=== PATIENT | male | born 1945 ===

== ENCOUNTER 2018-04-17 06:13 | Day surgery (SDC) | payer MEDICARE, OTHER ==
[2018-04-17 06:59] LABS: EOS % 18.3 % (1.5-5.0); GRAN # 4.84 (1.4-6.5); GRAN % 47.5 % (50.0-68.0); HEMOGLOBIN 15.1 g/dL (14.0-18.0); LYMPH # 2.3 (1.2-3.4); LYMPH % 22.9 % (22.0-35.0); MEAN CELL VOLUME 83.2 fl (80.0-105.0); MEAN CORPUSCULAR HEMOGLOBIN 27.8 pg (25.0-35.0); MEAN CORPUSCULAR HGB CONC 33.4 g/dl (31.0-37.0); MEAN PLATELET VOLUME 11.7 fl (7.0-11.0); MONO # 1.1 (0.1-0.6); MONO % 10.3 % (1.0-6.0); RBC 5.43 10^6/uL (3.5-6.1); WHITE BLOOD COUNT 10.2 10^3/uL (4.5-11.0)
[2018-04-17 07:00] LABS: BASO # 0.1 K/mm3 (0.0-2.0); EOS # 1.9 (0.0-0.7)
[2018-04-17] MEDS ORDERED: Lidocaine 2% PF (10 ml) Amp ONE (07:06)
[2018-04-17] MEDS ORDERED: Iohexol 350mgl/ml 50 ML ONE (07:06)
[2018-04-17] MEDS ORDERED: Phenylephrine 10 mg/ml Inj ONE (07:06)
[2018-04-17] MEDS ORDERED: Iodixanol 320 MG/ML 200 ML BOTTLE IV ONE (07:07)
[2018-04-17] MEDS ORDERED: Iodixanol 320 MG/ML 100 ML BOTTLE IV ONE (07:07)
[2018-04-17] MEDS ORDERED: Nitroglycerin 50mg in D5W 0 MG/0 ML BOTTLE IV ONE (07:07)
[2018-04-17 07:08] LABS: INR 1.07; PARTIAL THROMBOPLASTIN TIME 30.1 Seconds (25.1-36.5); PROTHROMBIN TIME 12.3 SECONDS (9.4-12.5)
[2018-04-17] MEDS ORDERED: Famotidine 20mg/50ml 20 MG/50 ML BAG IVPB ONE (07:13)
[2018-04-17] MEDS ORDERED: DiphenhydrAMINE 50 mg/ml Inj ONE (07:13)
[2018-04-17 07:33] LABS: CALCIUM 9.6 mg/dL (8.4-10.5)
[2018-04-17] MEDS ORDERED: Midazolam 2 MG/2 ML VIAL ONE ×2 (08:08→08:26)
--- NOTE | 2018-04-17 10:07 | CARDCATH ---
PROCEDURE DATE: 04/17/2018 CARDIAC CATHETERIZATION AND PTCA. HISTORY: The patient is a 73-year-old male with multiple cardiac risk factors, who is status post coronary artery bypass surgery, who presents with angina as well as an abnormal stress test. Because of this, a cardiac catheterization was recommended. PROCEDURE: Left heart catheterization with coronary arteriography, left ventriculogram, ONOFRE angiogram, saphenous vein graft angiogram followed by PTCA and stent of an LAD with drug-eluting stents. The right femoral artery was cannulated with a 6-Citizen Of [place] sheath. There were no complications. I performed moderate sedation, which included the presence of an independent trained observer that assisted in monitoring the patient's consciousness and physiologic status. After administration of Versed and fentanyl, my intra service time was 45 minutes. The findings on catheterization revealed a left ventricle that revealed mild inferior wall hypokinesis with an estimated ejection fraction of 60%. The RCA was a dominant vessel. There was a patent stent in the midportion. The left main artery was unremarkable. The LAD revealed 80% proximal stenosis followed by an 80% mid stenosis. The circumflex artery was occluded, which appeared chronic. There was a long critical lesion. A long occlusion from the proximal circumflex into the mid to distal circumflex artery. The ONOFRE to the LAD was occluded. The saphenous vein graft to the OM circumflex system revealed a 90% stenosis in its proximal portion. The patient was started on intravenous Angiomax on the fluoroscopic guide, the guiding catheter was placed in the ostium of the left main artery. An 0.014 ATW wire was used to cross the two lesions in the LAD. Predilatation was performed with a 2.5 balloon. Two drug-eluting stents were placed in the proximal and in the mid LAD lesions. Repeat coronary arteriography revealed an excellent result with no residual stenosis and RELL 3 flow. Angio-Seal was used to close the femoral artery site. The patient tolerated the procedure well. In summary, the procedure was successful PTCA and stent of 2 lesions in the proximal and mid LAD with drug-eluting stents. Cardiac catheterization reveals mild inferior wall hypokinesis with an EF of 60%. Triple-vessel CAD. Patent stent in the RCA. 90% SVG stenosis to the OM. Occluded ONOFRE to the LAD. Given these findings, the patient will need to continue on aspirin and Plavix and undergo a strict cardiac risk reduction program. We will bring him back in 1 week for PTCA and stent of the saphenous vein graft to the circumflex system. Rito Sotelo MD
--- NOTE | 2018-04-17 11:17 | CARD ---
APPROVED REPORT Date of service: 04/17/2018 EKG Measurement Heart [id number] [place] 142P36 [id number] <Conclusion> Sinus bradycardia Otherwise normal ECG
--- NOTE | 2018-04-17 11:38 | CARD ---
APPROVED REPORT Date of service: 04/17/2018 EKG Measurement Heart [id number] [place] 160P51 [id number] <Conclusion> Sinus bradycardia Inverted T in V 2 LVH by voltage No change
[2018-04-17] MEDS ORDERED: Sodium Chloride 0.9% 1,000 ML IV SCH ×2 (12:28→16:45)
--- NOTE | 2018-04-17 16:29 | HP ---
HISTORY OF PRESENT ILLNESS: I was called by Dr. Sotelo to see him. He is status post cardiac cath and stent placement. He is resting comfortably in bed. He has laid flat for 6 hours. He understands that he is comfortable. He is a 73-year-old male who had complaints of chest pain and shortness of breath on occasion, he was worried about it. He went saw Dr. Sotelo and he is having a cath and stent placement. He has a past medical history of CAD, high cholesterol, hypertension, arthritis. There is a family history of cancer. He had a colon polyp removed and ulcer and cataracts. He does have prostate history of cancer in the family. His mom had stomach cancer in the family. He has had colonoscopy, cardiac cath, PTCA stents x2, CABG x2, TURP. Today, he had a cath and a stent placement. No smoking. No drinking. No drugs. Pacemaker. He had chest pain and some edema. He has arthritis with disk disease. No history of depression or anxiety. REVIEW OF SYSTEMS: No vision changes. No hearing changes. No sore throat. No neck pain. He did have chest pain and shortness of breath. No palpitations. No cough. No abdominal pain. No nausea, vomiting, constipation or diarrhea. No leg pain. No skin issues. PHYSICAL EXAMINATION: VITAL SIGNS: He has 97.7 temperature, 65 pulse, 18 respiratory rate, 90% O2 sat on room air. HEENT: His head is atraumatic, normocephalic. Extraocular muscles are intact. Throat is moist. NECK: Supple. HEART: Regular rate. LUNGS: Decreased breath sounds but clear to auscultation. ABDOMEN: Soft and nontender. Positive bowel sounds. EXTREMITIES: Have no edema. SKIN: For I could tell, lying flat is intact. LYMPHS: Thyroid midline. No palpable lymphadenopathy appreciated. LABORATORY DATA: He had lab tests done. He has 140 sodium, potassium 3.9, chloride 102, BUN 22. He is on IV fluids. Creatinine 1.5, GFR is 46, sugar is 95. Calcium is 9.6, triglycerides are 129, cholesterol is 150, LDL is 86, HDL is 39. INR is 1.07. White count is 10.2, hemoglobin 15.1, hematocrit 45.2, platelets of 191. He had cardiac cath with Dr. Sotelo. He had a stent placement. He has CAD. He is going to be lying flat for 6 hours and then he is going to be able to get up and move around or walk. We will watch him overnight. Tonio Posada DO
[2018-04-17 18:29] LABS: BLOOD UREA NITROGEN 19 mg/dL (7-21); CALCIUM 9.2 mg/dL (8.4-10.5); GFR NON-AFRICAN AMERICAN 54
[2018-04-17 18:47] LABS: HEMOGLOBIN 14.3 g/dL (14.0-18.0); MEAN CELL VOLUME 82.3 fl (80.0-105.0); MEAN CORPUSCULAR HEMOGLOBIN 27.2 pg (25.0-35.0); RBC 5.26 10^6/uL (3.5-6.1); RED CELL DISTRIBUTION WIDTH 14.8 % (11.5-14.5); WHITE BLOOD COUNT 11.5 10^3/uL (4.5-11.0)
[2018-04-18 07:27] LABS: HEMOGLOBIN 13.5 g/dL (14.0-18.0); MEAN CORPUSCULAR HEMOGLOBIN 27.3 pg (25.0-35.0); MEAN CORPUSCULAR HGB CONC 33.3 g/dl (31.0-37.0); RBC 4.94 10^6/uL (3.5-6.1); RED CELL DISTRIBUTION WIDTH 14.7 % (11.5-14.5); WHITE BLOOD COUNT 21.4 10^3/uL (4.5-11.0)
[2018-04-18 08:57] LABS: BLOOD UREA NITROGEN 23 mg/dL (7-21); CALCIUM 8.8 mg/dL (8.4-10.5); GFR NON-AFRICAN AMERICAN 50
[2018-04-18 10:33] LABS: HEMOGLOBIN 13.8 g/dL (14.0-18.0); MEAN CELL VOLUME 81.7 fl (80.0-105.0); MEAN CORPUSCULAR HEMOGLOBIN 27.4 pg (25.0-35.0); MEAN CORPUSCULAR HGB CONC 33.5 g/dl (31.0-37.0); MEAN PLATELET VOLUME 11.5 fl (7.0-11.0); RBC 5.04 10^6/uL (3.5-6.1); RED CELL DISTRIBUTION WIDTH 14.9 % (11.5-14.5); WHITE BLOOD COUNT 21.8 10^3/uL (4.5-11.0)
--- NOTE | 2018-04-18 10:59 | CARD ---
APPROVED REPORT Date of service: 04/18/2018 EKG Measurement Heart [id number] [place] 154P47 [id number] <Conclusion> Normal sinus rhythm Inverted T in V 2 No change
--- NOTE | 2018-04-18 12:01 | PN ---
DATE: 04/18/2018 CARDIOLOGY FOLLOWUP SUBJECTIVE: The patient is ambulating without symptoms. No shortness of breath. No chest pain. PHYSICAL EXAMINATION: VITAL SIGNS: Blood pressure is 106/66, heart rates in the 70s. The patient is afebrile. NECK: Negative JVD. LUNGS: Without rales. HEART: S1 and S2. EXTREMITIES: Without edema. The right groin site is stable. LABORATORY DATA: Hemoglobin is 13.8, white count is gone up to 21,000 and repeat is the same. IMPRESSION: 1. Stable post percutaneous transluminal coronary angioplasty and stent of left anterior descending artery. 2. Unstable angina. 3. Coronary artery disease. 4. History of coronary artery bypass surgery. 5. Occlusion of all bypass grafts. 6. Unexplained elevated white count. PLAN: Given these findings, we will keep the patient here for another day. We will check blood cultures. A urinalysis has been ordered. Rito Sotelo MD
[2018-04-18] MEDS ORDERED: Influenza Vaccine 60 mcg/0.5 mL SYR (4YR UP) IM ONE (13:24)
[2018-04-18] MEDS ORDERED: Pneumococcal 23-Valent Vaccine IM ONE (13:24)
[2018-04-18 13:25] VITALS: BMI 22.5
--- NOTE | 2018-04-18 13:46 | PN ---
DATE: 04/18/2018 SUBJECTIVE: I saw him resting comfortably, sitting up in bed. He is eating his breakfast. He is status post cardiac cath with Dr. Sotelo. He was stented yesterday. I was hoping to discharge him this morning, but I was not expecting the white count to be too elevated. I added his Flomax, Norvasc, Zantac, omeprazole, Coreg, Lipitor, aspirin, Zofran, Antivert, lisinopril-hydrochlorothiazide, and vitamin D back to his regimen. PHYSICAL EXAMINATION: VITAL SIGNS: He has a 98.2 temp, 83 pulse, 105/60 blood pressure, 20 respiratory rate, 95% O2 sat on room air. HEENT: His head is atraumatic, normocephalic. HEART: Regular rate. LUNGS: Decreased breath sounds, but clear. ABDOMEN: Soft. EXTREMITIES: No edema. LABORATORY DATA: On his blood test, he has a 21.8 white count, it was 11.5 yesterday and 21.4 this morning, I did a stat one to make sure 21.8; 13.8 hemoglobin and 41.2 hematocrit with 184 platelets; that worries me a little bit. He has 138 sodium, potassium 3.8, BUN 23, creatinine 1.4, GFR is 50, sugar is 121, calcium is 8.8. ASSESSMENT AND PLAN: We are going to keep him, not going to discharge him now. Blood cultures and urine cultures will be ordered and we will see how it goes. We will watch him overnight one more time and we will see if we can do that tomorrow; otherwise, we will call in Infectious Disease tomorrow if the blood cultures and urine cultures are positive. We will watch him overnight, check labs tomorrow. He is here for coronary artery disease and stent placement, now he has got leukocytosis over 20. Tonio Posada DO MTDLopez
[2018-04-18 15:52] LABS: URINE BILIRUBIN NEGATIVE (NEGATIVE); URINE BLOOD TRACE-LYSED (NEGATIVE); URINE GLUCOSE (UA) NEGATIVE (NEGATIVE); URINE LEUKOCYTE ESTERASE NEGATIVE Leu/uL (NEGATIVE); URINE PROTEIN NEGATIVE mg/dL (<30 mg/dL); URINE UROBILINOGEN 0.2 E.U./dL (<1 E.U./dL)
[2018-04-18 15:56] LABS: URINE APPEARANCE CLEAR (CLEAR); URINE COLOR YELLOW (YELLOW)
[2018-04-18 15:59] LABS: URINE RBC 0 - 2 /hpf (0-2); URINE WBC NEGATIVE /hpf (0-6)
[2018-04-18 16:01] LABS: URINE BACTERIA NEG (NEG)
[2018-04-18 17:12] VITALS: RESP 18
[2018-04-19 05:57] VITALS: TEMP 98.6; O2SAT 99
[2018-04-19 06:47] LABS: HEMOGLOBIN 12.8 g/dL (14.0-18.0); MEAN CELL VOLUME 82.5 fl (80.0-105.0); MEAN CORPUSCULAR HGB CONC 32.7 g/dl (31.0-37.0); MEAN PLATELET VOLUME 11.8 fl (7.0-11.0); RBC 4.74 10^6/uL (3.5-6.1); WHITE BLOOD COUNT 13.1 10^3/uL (4.5-11.0)
[2018-04-19 06:59] LABS: ALBUMIN 3.4 g/dL (3.0-4.8); ALT/SGPT 28 U/L (7-56); AST/SGOT 20 U/L (17-59); BLOOD UREA NITROGEN 23 mg/dL (7-21); CALCIUM 8.3 mg/dL (8.4-10.5); GFR NON-AFRICAN AMERICAN 59
[2018-04-19] MEDS ORDERED: Pantoprazole 40 mg EC Tab PO SCH (07:30)
--- NOTE | 2018-04-19 11:24 | PN ---
DATE: 04/19/2018 CARDIOLOGY FOLLOWUP SUBJECTIVE: The patient is asymptomatic. PHYSICAL EXAMINATION: VITAL SIGNS: Stable. The patient is afebrile. NECK: Negative JVD. LUNGS: Without rales. HEART: Reveals S1, S2. EXTREMITIES: Without edema. LABORATORY DATA: The white count is down. Urine cultures are negative. Blood cultures are negative so far. IMPRESSION: 1. The elevated white count is likely due to the steroids that was given to him in the catheterization lab to help treat his potential dye allergy. 2. Stable angina. 3. Status post percutaneous transluminal coronary angioplasty and stent of two lesions in the left anterior descending. 4. History of multivessel coronary artery disease. 5. History of coronary artery bypass surgery with occlusion of both bypass grafts. 6. Hypercholesterolemia. PLAN: Given these findings, the patient's cardiac status is stable. He is able to be discharged today. His renal function is improved with IV hydration. Given these findings, the patient needs to go home on aspirin and Plavix. I have emphasized to the patient as well as the nurses emphasized to the patient about the need to take Plavix at home. A prescription was handed to him directly. He will come back next week on for PTCA and stent of a subtotally occluded saphenous vein graft. Rito Sotelo MD
[2018-04-19 11:39] VITALS: BP 158/79; PULSE 85
--- NOTE | 2018-04-20 06:21 | DS ---
HISTORY OF PRESENT ILLNESS: He is doing much better this morning, he is feeling well. No chest pain or shortness of breath. No abdominal pain. He had cardiac cath with Dr. Sotelo. He did well until his white count bumped up to 21,800. We watched another [address] Sotelo, it came down to 13.1. His hemoglobin is 12.8, hematocrit 39.1 and platelets of 169. His sodium is 139, potassium 3.7, BUN is 23, creatinine 1.2, GFR is 59, sugar is 87, calcium is 8.3, total bili is 0.3, AST is 20, ALT is 20, alk phos 56, total protein 6.9. He has a 98.6 temperature, 67 pulse, 128/52 blood pressure, 18 respiratory rate and 99% sat on room air. PHYSICAL EXAMINATION: GENERAL: Atraumatic and normocephalic. HEART: Regular rate. LUNGS: Clear to auscultation. ABDOMEN: Soft. EXTREMITIES: No edema. Overall, I think he is doing quite well. He is on his Coreg, his Ecotrin, his Flomax, Lipitor, Norvasc, Pepcid, Plavix and Zestril. He was here for CAD, stent placement. He had elevated white count, leukocytosis of over 20, we watched him and it came down to 13 and now he is being discharged as per Dr. Sotelo. Follow up in the next week with Dr. Sotelo. Tonio Posada DO
== END 2018-04-19 12:00 | disposition home or self-care (01) ==
LOC: CATH 06:13 → 2RSO 09:54 → CATH 04-19 12:00
PROVIDERS: ATTEND Internal Medicine Cardiovascular Disease
DX: I25.110 Atherosclerotic heart disease of native coronary artery with unstable angina pectoris (principal); I25.810 Atherosclerosis of coronary artery bypass graft(s) without angina pectoris; D72.829 Elevated white blood cell count, unspecified; E78.00 Pure hypercholesterolemia, unspecified; I10 Essential (primary) hypertension; Z86.010 Personal history of colon polyps
CPT/HCPCS: 36415 ×3; 80048 ×2; 80053; 80061; 81001; 82550 ×2; 85025; 85027 ×3; 85610; 85730; 86850; 86900; 87040; 87086; 93005; 93458; 99152; 99153; C1725; C1760; C1769 ×3; C1874; C1887; C2629; C9600; J0583; J1200; J1644; J2250; J2930; J3010; J7030; Q9966; Q9967

== ENCOUNTER 2018-04-23 07:00 | Observation (INO) | payer MEDICARE, OTHER ==
[2018-04-21 10:25] VITALS: BMI 25.7
[2018-04-23] MEDS ORDERED: Lidocaine 2% Inj (20ml) ONE (07:19)
[2018-04-23] MEDS ORDERED: Iodixanol 320 MG/ML 100 ML BOTTLE IV ONE (07:20)
[2018-04-23] MEDS ORDERED: Iodixanol 320 MG/ML 200 ML BOTTLE IV ONE (07:20)
[2018-04-23] MEDS ORDERED: Famotidine 20mg/50ml 20 MG/50 ML BAG IVPB ONE (07:20)
[2018-04-23] MEDS ORDERED: DiphenhydrAMINE 50 mg/ml Inj ONE (07:20)
[2018-04-23] MEDS ORDERED: Iohexol 350mgl/ml 50 ML ONE (07:20)
[2018-04-23] MEDS ORDERED: Sodium Bicarbonate (8.4%) 50 Meq Syringe IVP ONE (07:21)
[2018-04-23 07:26] LABS: BASO # 0.08 K/mm3 (0.0-2.0); BASO % 0.6 % (0.0-3.0); EOS # 2.3 (0.0-0.7); EOS % 17.9 % (1.5-5.0); GRAN # 6.54 (1.4-6.5); GRAN % 50.5 % (50.0-68.0); LYMPH # 2.5 (1.2-3.4); LYMPH % 19.6 % (22.0-35.0); MEAN CELL VOLUME 82.9 fl (80.0-105.0); MEAN CORPUSCULAR HEMOGLOBIN 27.6 pg (25.0-35.0); MEAN CORPUSCULAR HGB CONC 33.3 g/dl (31.0-37.0); MEAN PLATELET VOLUME 11.2 fl (7.0-11.0); MONO # 1.5 (0.1-0.6); MONO % 11.4 % (1.0-6.0); RBC 5.44 10^6/uL (3.5-6.1); RED CELL DISTRIBUTION WIDTH 14.9 % (11.5-14.5); WHITE BLOOD COUNT 12.9 10^3/uL (4.5-11.0)
[2018-04-23 07:32] LABS: CALCIUM 9.5 mg/dL (8.4-10.5)
[2018-04-23 07:34] LABS: INR 1.03; PARTIAL THROMBOPLASTIN TIME 31.8 Seconds (25.1-36.5); PROTHROMBIN TIME 11.8 SECONDS (9.4-12.5)
[2018-04-23] MEDS ORDERED: Midazolam 2 MG/2 ML VIAL ONE ×2 (07:56→08:01)
[2018-04-23] MEDS ORDERED: Sodium Chloride 0.9% 1,000 ML IV SCH (08:45)
--- NOTE | 2018-04-23 09:18 | CARDCATH ---
PROCEDURE DATE: 04/23/2018 PERCUTANEOUS TRANSLUMINAL CORONARY ANGIOPLASTY AND CARDIAC CATH HISTORY: The patient is a 73-year-old male with history of coronary artery bypass surgery who presents with exertional shortness of breath and angina. Catheterization last week revealed triple-vessel CAD with an occluded ONOFRE to the LAD as well as a critical lesion in the saphenous vein graft to the circumflex artery. The stent to the RCA is patent. He was brought back today for PTCA and stent of an ostial SVG lesion to the circumflex artery. His procedure was staged because of his renal insufficiency. Today's creatinine was 1.6 which is unchanged from his pre-admission creatinine last week which was 1.5. PROCEDURE: Left heart catheterization with coronary arteriography and saphenous vein graft angiogram followed by PTCA and stent of the ostium of the saphenous vein graft. The left femoral artery was cannulated with a 6-[place] sheath. I performed moderate sedation, which included the presence of an independent trained observer to monitor his consciousness and physiologic status. After given him fentanyl and Versed, my intra-service time was 30 minutes. The findings on catheterization revealed a 90% ostial stenoses of the saphenous vein graft to circumflex artery. The 3.0 right guiding catheter was placed in the ostium of the RCA and 0.014 ATW wire was used to cross the lesion. A 2.0 balloon was utilized to dilate multiple areas in the proximal saphenous vein graft at 14 atmospheres of pressure. Repeat coronary arteriography revealed resolution of the stenoses with RELL-3 flow down the saphenous vein graft. No stents were placed given the small caliber of the saphenous vein graft. Manual compression was used to close the femoral artery site. The patient tolerated the procedure well. In summary, the procedure was successful PTCA of the ostium of the saphenous vein graft to the circumflex artery. No stents were placed given the caliber of the saphenous vein graft. The patient is status post PTCA and stent of an LAD. Given these findings, the patient will remain on aspirin indefinitely and Plavix for least a year and undergo a strict cardiac risk reduction program. Rito Sotelo MD [facility] # [id number]
[2018-04-23] MEDS ORDERED: Pantoprazole 40 mg EC Tab PO PRN (11:48)
--- NOTE | 2018-04-23 16:14 | HP ---
HISTORY OF PRESENT ILLNESS: I was called by Dr. Sotelo to put him in the hospital, do this H and P. He has had a cardiac cath with stent placement. He was here a week ago, had the same thing done for him back then. He started off being a 73-year-old white male who presents with shortness of breath while ambulating and hints of having cardiac cath. He came in for cardiac cath with stent placement again today. He is resting comfortably in bed. At this time, no chest pain, no shortness of breath, no abdominal pain. He is status post PTCA with PAST MEDICAL HISTORY: He has a past medical history of CAD, hyperlipidemia, hypertension, arthritis, history of cancer in the family, also cataract and colon polyps for him, he has prostate cancer. Mother had stomach cancer. He had a colonoscopy, cardiac cath with CABG and 2 stents today. SOCIAL HISTORY: No smoking, no drinking, no drugs. He has a pacemaker put in and removed in 2007. He had chest pain and peripheral edema. He has shortness of breath. ALLERGIES: HE HAS ALLERGIES TO DULOXETINE, PREGABALIN AND IV CONTRAST. MEDICATIONS: He is on alprazolam, Coreg, Ecotrin, Flomax, Lipitor, Norvasc, omeprazole, Plavix and IV fluids. REVIEW OF SYSTEMS: He has no acute vision changes, hearing changes, no sore throat. He did have a little bit of chest pain and shortness of breath, but that was a week ago or so. No chest pain or palpitations now. No shortness of breath or cough now. No abdominal pain. No nausea, vomiting or constipation. No diarrhea. He goes to the bathroom, urinating well. No extremity issues. No skin issues. No anxiety or depression. PHYSICAL EXAMINATION: VITAL SIGNS: He has 98 temperature, 72 pulse, 144/76 blood pressure, 18 respiratory rate, 90% O2 sat on room air. HEENT: Head is atraumatic and normocephalic. Extraocular muscles are intact. Pupils are equal and reactive to light. Throat is moist. NECK: Supple. No JVD. HEART: Regular rate. LUNGS: Decreased breath sounds but clear to auscultation, lying flat in bed. ABDOMEN: Soft. Positive bowel sounds. No guarding, no rebound, no CVA tenderness. EXTREMITIES: Have no edema. NEUROLOGICAL: _.a &o x3 SKIN: He has flap, but he tells meDr. Sotelo. LYMPHS: Thyroid midline. No palpable lymphadenopathy. LABORATORY DATA: He has 141 sodium, potassium 4.2, BUN is 23, creatinine 1.6, he is on IV fluids, GFR is 43, sugar of 92, calcium is 9.5, triglycerides 109, cholesterol , HDL is 39, INR is 1.03. He has got a 12.9 white count, it was as high as 23 the last time he was in, we will see what tomorrow says; hemoglobin 15; hematocrit 45.1; platelets are 217. PLAN: We will check his labs. He is flat for 6 hours. We will keep an eye on him, put him back on his medications running at 100 mL an hour. We will check Tonio Posada DO MTDLopez
--- NOTE | 2018-04-23 18:43 | CARD ---
APPROVED REPORT Date of service: 04/23/2018 EKG Measurement Heart [id number] CT 162P47 [id number] <Conclusion> Sinus bradycardia Otherwise normal ECG
[2018-04-24 07:10] LABS: BASO # 0.01 K/mm3 (0.0-2.0); GRAN # 17.6 (1.4-6.5); GRAN % 88.1 % (50.0-68.0); LYMPH # 1.1 (1.2-3.4); LYMPH % 5.4 % (22.0-35.0); MEAN CELL VOLUME 82.6 fl (80.0-105.0); MEAN CORPUSCULAR HEMOGLOBIN 26.7 pg (25.0-35.0); MEAN CORPUSCULAR HGB CONC 32.4 g/dl (31.0-37.0); MEAN PLATELET VOLUME 11.6 fl (7.0-11.0); MONO # 1.3 (0.1-0.6); MONO % 6.5 % (1.0-6.0); RBC 4.53 10^6/uL (3.5-6.1); RED CELL DISTRIBUTION WIDTH 14.8 % (11.5-14.5)
[2018-04-24 07:19] LABS: HEMOGLOBIN 12.1 g/dL (14.0-18.0)
[2018-04-24 08:08] LABS: ALBUMIN 3.4 g/dL (3.0-4.8); ALT/SGPT 22 U/L (7-56); AST/SGOT 15 U/L (17-59); BLOOD UREA NITROGEN 20 mg/dL (7-21); CALCIUM 8.4 mg/dL (8.4-10.5); GFR NON-AFRICAN AMERICAN 59
[2018-04-24] MEDS ORDERED: Sodium Chloride 0.45% 1,000 ML IV SCH (08:45)
--- NOTE | 2018-04-24 12:25 | PN ---
DATE: 04/24/2018 SUBJECTIVE: I saw Moustapha, resting comfortably in bed. He is feeling well. No complaints. No chest pain. No shortness of breath. No abdominal pain. He had a cardiac cath yesterday with stent placement with Dr. Sotelo. Dr. Sotelo asked me to take care of him while he is here. He has a 97.9 temperature, 77 pulse, 110/59 blood pressure, 20 respiratory rate and 97% O2 sat on room air. I came in to discharge him home today, but he had some blood test done. He has a 20,000 white count, I am going to hold him overnight, check him tomorrow. His hemoglobin also dropped to 12.1, hematocrit 37.4 and platelets of 189,000. He has a 139 sodium, potassium 4.3, BUN is 20, creatinine 1.2, GFR is 59, sugar is 115, calcium is 8.4, total bili is 0.4. AST is 15, ALT is 22, alk phos 62, total protein 6.7 and albumin is 3.4. He is not on any IV fluids at this time. I am going to put him on one-half normal at 40. I am going to check his labs tomorrow morning. See if we can get this white count to come down. Hopefully, it is just reactionary to the procedure and we will follow up. If it stays up another day, I will Infectious Disease and do blood cultures and urine cultures. Right now, I am going to watch another 24 hours to make sure the white count comes down for his leukocytosis. Tonio Posada DO
--- NOTE | 2018-04-24 13:26 | CARD ---
APPROVED REPORT Date of service: 04/24/2018 EKG Measurement Heart [id number] [place] 144P51 [id number] <Conclusion> Normal sinus rhythm Normal ECG
--- NOTE | 2018-04-24 16:03 | PN ---
DATE: 04/24/[address] Rito Sotelo. SUBJECTIVE: The patient denies any chest pain or shortness of breath. No groin bleeding. PHYSICAL EXAMINATION: VITAL SIGNS: Blood pressure 112/64, heart rate 69, temperature 98.2, respirations 19. HEENT: Normocephalic. CHEST: Clear. HEART: S1 and S2 regular. EXTREMITIES: No edema. No hematoma. LABORATORY DATA: Today's SMA-7 is within normal limits except for glucose of 115. Today's hemoglobin and hematocrit 12.1 and 37.4, white count 20, platelet count 189,000. Today's EKG revealed normal sinus rhythm at rate of 66. ASSESSMENT: 1. Coronary artery disease, status post successful percutaneous transluminal coronary angioplasty to the ostium of the saphenous vein graft to the circumflex artery. 2. Status post percutaneous transluminal coronary angioplasty and stent to the left anterior descending recently. 3. Leukocytosis. RECOMMENDATIONS: Continue Coreg 6.25 mg twice a day, aspirin 81 mg once a day, Lipitor at 40 mg once a day, Norvasc at 5 mg once a day, Plavix 75 mg once a day. Shahram Quintero MD
[2018-04-24 18:28] VITALS: RESP 18
[2018-04-25 06:05] VITALS: TEMP 97; O2SAT 100
[2018-04-25 07:44] LABS: HEMOGLOBIN 12.5 g/dL (14.0-18.0); MEAN CELL VOLUME 83.6 fl (80.0-105.0); MEAN CORPUSCULAR HEMOGLOBIN 27.4 pg (25.0-35.0); MEAN CORPUSCULAR HGB CONC 32.7 g/dl (31.0-37.0); MEAN PLATELET VOLUME 11.4 fl (7.0-11.0); RBC 4.57 10^6/uL (3.5-6.1); RED CELL DISTRIBUTION WIDTH 15.3 % (11.5-14.5); WHITE BLOOD COUNT 12.5 10^3/uL (4.5-11.0)
[2018-04-25 08:05] LABS: ALBUMIN 3.5 g/dL (3.0-4.8); ALT/SGPT 26 U/L (7-56); AST/SGOT 19 U/L (17-59); BLOOD UREA NITROGEN 19 mg/dL (7-21); CALCIUM 8.4 mg/dL (8.4-10.5); GFR NON-AFRICAN AMERICAN 59
[2018-04-25 09:15] VITALS: BP 122/58
[2018-04-25 11:04] VITALS: PULSE 59
--- NOTE | 2018-04-25 14:06 | PN ---
DATE: 04/25/2018 SUBJECTIVE: The patient denies chest pain. He does report abdominal discomfort which is a chronic situation for him. PHYSICAL EXAMINATION: VITAL SIGNS: Blood pressure 122/58, heart rate 58, temperature 97, [id number]. HEENT: Normocephalic. CHEST: Clear. HEART: S1, S2 regular. ABDOMEN: Soft. EXTREMITIES: No edema. ASSESSMENT: 1. Coronary artery disease, status post successful balloon angioplasty to the ostium of saphenous vein graft to circumflex artery with history of recent stenting to the left anterior descending artery. 2. Leukocytosis which has improved today. 3. Hypertension. RECOMMENDATIONS: Continue Coreg 6.25 mg once a day, aspirin 81 mg once a day, Lipitor 40 mg once a day, Norvasc 5 mg once a day, Plavix 75 mg once a day. The case was discussed with Dr. Tonio Posada. The patient can be discharged from the cardiac point of view and the patient was instructed to comply with aspirin and Plavix intake. Shahram Quintero MD
--- NOTE | 2018-04-25 16:38 | DS ---
HISTORY OF PRESENT ILLNESS: Dr. Sotelo had done a cardiac cath and stent placement. He did well, but then his white count went high, it went from 12.9 to 20. I kept him overnight to make sure it came down now it is 12.5 with a 12.5 hemoglobin, 38.2 hematocrit with 182 platelets. He has 141 sodium, potassium is 4.5, BUN is 19, creatinine 1.2. Kidney functions are also back to normal. GFR is up to 59, sugar is 86, calcium is 8.4, total bili is 0.4, AST is 19, ALT is 26, alk phos is 59, total protein is 7. Overall, he improved after the cath and his labs are better. He is seen by Dr. Quintero covering for Dr. Sotelo. He will be followed up on the outpatient. He will go back on the medications as per Cardiology's discussion with the patient. Coronary artery disease status post successful percutaneous transluminal coronary angioplasty and leucocytosis. He will be discharged today to follow up with Dr. Sotelo on the outpatient with the same medications. He knows that if he needs any medications, he will have the pharmacy call me until they could see his primary care and doctor. He is on Coreg, Ecotrin, Flomax, Lipitor, Norvasc, Plavix, Protonix, Xanax. Tonio Posada DO
== END 2018-04-25 11:11 | disposition home or self-care (01) ==
LOC: CATH 07:00 → 2RSO 08:40 → CATH 08:40 → 2RSO 04-24 15:11 → INTOOBSV 04-24 15:11
PROVIDERS: ADMIT Internal Medicine Cardiovascular Disease; ATTEND Internal Medicine Cardiovascular Disease
DX: I25.119 Atherosclerotic heart disease of native coronary artery with unspecified angina pectoris (principal); N28.9 Disorder of kidney and ureter, unspecified; I10 Essential (primary) hypertension; D72.829 Elevated white blood cell count, unspecified; Z86.010 Personal history of colon polyps; Z85.46 Personal history of malignant neoplasm of prostate; Z95.1 Presence of aortocoronary bypass graft; Z95.0 Presence of cardiac pacemaker
CPT/HCPCS: 36415; 80048; 80053; 80061; 82948; 85025; 85027; 85576; 85610; 85730; 86850; 86900; 92920; 93005; 99152; 99153; C1725; C1769; C1887; C2629; G0378; J0583; J1200; J1644; J2250; J2930; J3010; J7030; Q9966; Q9967